=== PATIENT | male | born 1990 | race American Indian/Alaskan Native ===

== ENCOUNTER 2017-05-26 12:11 | Emergency (ER) | payer OTHER ==
[2017-05-26 12:46] VITALS: BMI 18.7
[2017-05-26 12:47] VITALS: RESP 18; TEMP 98.8; O2SAT 99
--- NOTE | 2017-05-26 14:26 | RAD ---
PROCEDURE: Radiographs of the left calcaneus/hindfoot. HISTORY: heel injury. s/p fall off bed COMPARISON: None available. TECHNIQUE: Frontal and lateral radiographs of the calcaneus. FINDINGS: No fracture or joint dislocation. No focal lesion. No calcaneal spur. IMPRESSION: Unremarkable radiographs of the left calcaneus /hindfoot.
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
[2017-05-26 15:00] VITALS: BP 128/76; PULSE 68
== END 2017-05-26 15:01 | disposition home or self-care (01) ==
LOC: ED 12:11
DX: M79.672 Pain in left foot (principal)